=== PATIENT | male | born 1980 | race Caucasian/White ===

== ENCOUNTER 2022-07-09 06:29 | Outpatient (CLI) | payer OTHER | END 2022-07-09 06:30 | disposition other institution (70) | LOC: EMS 06:29 | DX: R20.0 Anesthesia of skin (principal); H57.12 Ocular pain, left eye; H91.92 Unspecified hearing loss, left ear ==

== ENCOUNTER 2022-07-09 07:09 | Emergency (ER) | payer OTHER ==
--- NOTE | 2022-07-09 09:08 | ED Physician Documentation ---
PD HPI OPHTHO - Stated complaint Stated Complaint: FACE NUMBNESS - Chief complaint Chief Complaint: Heent - History obtained from History obtained from: Patient - Additional information Additional information: Patient is a 41-year-old male presenting for evaluation of itchy feeling to his left eye with mild blurred vision. He also reports having some numbness around his left eye And upper left face that has since resolved. He does not wear contacts or glasses. His visual acuity is intact. Reports the numbness lasted for an hour or 2 but has since resolved. He denies having numbness elsewhere. He did not have any difficulties with speaking, swallowing, motor movements. He continues to have some itchy sensation to his left eye. He reports currently having URI symptoms as does his and other family members in the house. He did have some tearing and clear drainage this morning from his L eye. He is [employer]. He denies working with any substances that could have gotten into his eye. Review of Systems Constitutional: denies: Fever Cardiac: denies: Chest pain / pressure Respiratory: denies: Dyspnea GI: denies: Abdominal Pain Neurologic: denies: Headache PD PAST MEDICAL HISTORY - Past Medical History Past Medical History: No Cardiovascular: None Respiratory: None Neuro: None Endocrine/Autoimmune: None GI: None : None HEENT: None Psych: None Musculoskeletal: None Derm: None - Past Surgical History Past Surgical History: No - Present Medications Home Medications: Ambulatory Orders Medication Instructions Recorded Confirmed Polymyxin B/Trimeth Ophth Drop 1 drops LEFTEYE Q3H 7 Days #1 each 07/09/22 [Polytrim Ophth Drops] - Allergies Allergies/Adverse Reactions: Allergies Allergy/AdvReac Type Severity Reaction Status Date / Time No Known Drug Allergies Allergy Verified 07/09/22 07:21 - Social History Does the pt smoke?: No Smoking Status: Never smoker Does the pt drink ETOH?: No Does the pt have substance abuse?: No - Immunizations Immunizations are current?: Yes - POLST Patient has POLST: No PD ED PE NORMAL - General General: Alert and oriented X 3, No acute distress, Well developed/nourished - HEENT HEENT: Atraumatic, PERRL, EOMI, Moist mucous membranes, Pharynx benign - Neck Neck: Supple, no meningeal sign - Cardiac Cardiac: RRR - Respiratory Respiratory: No respiratory distress, Clear bilaterally - Derm Derm: Warm and dry - Neuro Neuro: Alert and oriented X 3, tobacco weigher 2-12 intact, No motor deficit, No sensory deficit, Normal speech, Other (Normal finger-nose bilaterally and normal gait) PD ED PE EXPANDED - Eyes Eyes: Visual acuity - see nn, PERRL, EOMI, Normal eyelids, No eyelid FB (ev erted), Injected conj/sclera (Left), Normal corneas, Anterior chambers clear, Other (Normal IOP;). No: Eyelid swelling, Eyelid erythema, Fluorescein uptake Results - Vitals Vitals: Vital Signs - 24 hr 07/09/22 07/09/22 07:18 09:10 Temperature 36.4 C L Heart Rate 75 108 H Respiratory 17 18 Rate Blood Pressure 120/81 H 125/90 H O2 Saturation 100 99 Oxygen O2 Source Room air PD Medical Decision Making - ED course ED course: Patient presenting for evaluation of itchy feeling to his left eye. He does have URI symptoms. His visual acuity is intact. He also reported having some numbness to his face this morning. His neuro exam is normal. He has no risk factors for stroke and his symptoms do not suggest a stroke or TIA.His eye was examined and noted to have left conjunctival injection.There is no signs of a foreign body, corneal injury, elevated IOP.I will place the patient on an antibiotic drop. I discussed concerning symptoms to return for.No signs of periorbital or orbital cellulitis at this time. Departure - Departure Disposition: 01 Home, Self Care Clinical Impression: Acute conjunctivitis, left eye Condition: Stable Instructions: ED Conjunctivitis Bacterial Follow-Up: [facility] [Provider Group] Prescriptions: Polymyxin B/Trimeth Ophth Drop [Polytrim Ophth Drops] 1 drops LEFTEYE Q3H 7 Days #1 each Comments: I am starting you on an antibiotic drop for an infection in your left eye. If at anytime, you develop any new or worsening symptoms you need to return to the ER. I would [facility] are doing better. I have sent your prescription to [facility] in [place]. Forms: Activity restrictions Discharge Date/Time: 07/09/22 09:17
[2022-07-09 09:11] VITALS: BP 125/90
== END 2022-07-09 09:17 | disposition home or self-care (01) ==
LOC: ED 07:09
DX: H10.32 Unspecified acute conjunctivitis, left eye (principal)
CPT/HCPCS: 99283

== ENCOUNTER 2023-10-29 15:46 | Outpatient (CLI) | payer OTHER | END 2023-10-29 23:59 | disposition EMS.NT | LOC: EMS 15:46 | DX: R10.31 Right lower quadrant pain (principal) ==